=== PATIENT | female | born 1950 | race Asian ===

== ENCOUNTER → 2016-07-27 | Outpatient (CLI) | payer OTHER ==
--- NOTE | 2016-07-27 15:14 | MAMMOGRAPHY REPORT ---
UNILATERAL LEFT DIGITAL DIAGNOSTIC MAMMOGRAM TOMOSYNTHESIS WITH CAD: 07/27/2016 CLINICAL HISTORY: 66-year-old woman presents for follow-up of an enlarging left axillary lymph node. TECHNIQUE: Left breast tomosynthesis in addition to standard 2D mammography was performed. Current tez correia was also evaluated with a Computer Aided Detection (CAD) system. COMPARISON: Comparison is made to exams dated: 01/24/2016 ultrasound, 01/20/2016 mammogram, 01/16/2015 mammogram - [facility], 11/18/2011 mammogram, 11/18/2012 mammogram, and 01/11/2014 ma mmogram - [facility]. BREAST COMPOSITION: There are scattered areas of fibroglandular density in the left breast. FINDINGS: Surgical clips project over the left axillary region, seen projecting over the pectoralis muscle on the left MLO view. There is an ovoid 8.7 x 4.4 mm lymph node in the left axilla with a la rger 16 mm lymph node with prominent fatty hilum superior and posterior to the first. The smaller 8 .7 mm lymph node correlates with the possibly enlarging lymph node seen on the previous mammogram da christie 01/20/2016. Prior measurements mammographically were 11.0 x 6.1 mm and given the interval decre ase in size this is considered benign. There are mild vascular calcifications in the left breast. No new suspicious mass, architectural distortion or cluster of microcalcifications is seen. IMPRESSION: ACR BI-RADS CATEGORY 2: BENIGN The possibly enlarging lymph node in the left axilla has decreased in size compared to the January 24 mammogram, confirming benignity. There is no mammographic evidence of malignancy. Return to [facility] mammogram screening schedule is recommended. The patient has been verbally notified of the resul ts. Approximately 10% of breast cancers are not detected with mammography. A negative mammographic repor t should not delay biopsy if a clinically suggestive mass is present. Diana Wilkins M.D. ay/:07/27/2016 11:14:56 Black Belt: Sima CHARLTON)([place]), [facility] letter sent: Normal 1/2 BI-RADS Code: ACR BI-RADS Category 2: Benign
== END | disposition home or self-care (01) ==
LOC: C.MAMM 10:47
PROVIDERS: ATTEND Family Medicine
DX: R59.1 Generalized enlarged lymph nodes (principal)

== ENCOUNTER → 2016-12-18 | Outpatient (CLI) | payer OTHER | END | disposition home or self-care (01) | LOC: C.PATHSPEC 14:25 | PROVIDERS: ATTEND Dentist Endodontics | DX: K04.5 Chronic apical periodontitis (principal); K04.8 Radicular cyst ==

== ENCOUNTER → 2017-01-25 | Outpatient (CLI) | payer OTHER ==
--- NOTE | 2017-01-26 07:57 | MAMMOGRAPHY REPORT ---
BILATERAL DIGITAL SCREENING MAMMOGRAM TOMOSYNTHESIS WITH CAD: 01/25/2017 CLINICAL HISTORY: Asymptomatic. Personal history of breast cancer. TECHNIQUE: Breast tomosynthesis in addition to standard 2D mammography was performed. Current study was also evaluated with a Computer Aided Detection (CAD) system. COMPARISON: Comparison is made to exams dated: 07/27/2016 mammogram, 01/20/2016 mammogram, 01/16/2015 m ammogram, 01/11/2014 mammogram - [facility], 11/18/2012 mammogram, and 11/18/2011 mammo gram. BREAST COMPOSITION: There are scattered areas of fibroglandular density in both breasts. FINDINGS: There are stable post surgical changes in left breast. Stable size of a lymph node in the far superior left breast on the MLO view. 3 surgical clips project over the left pectoralis muscle o n the MLO view. There are mild vascular calcifications in the breasts. No new suspicious mass, arch itectural distortion or cluster of microcalcifications is seen. IMPRESSION: ACR BI-RADS CATEGORY 1: NEGATIVE There is no mammographic evidence of malignancy. A 1 year screening mammogram is recommended. The pa tient will receive written notification of the results. Approximately 10% of breast cancers are not detected with mammography. A negative mammographic report should not delay biopsy if a clinically suggestive mass is present. Diana Wilkins M.D. ay/:01/25/2017 16:59:22 Brokerage Manager: Dina Denis RT(R)(M), [facility] letter sent: Normal 1/2 BI-RADS Code: ACR BI-RADS Category 1: Negative
== END | disposition home or self-care (01) ==
LOC: C.MAMM 09:50
PROVIDERS: ATTEND Obstetrics & Gynecology
DX: Z12.31 Encounter for screening mammogram for malignant neoplasm of breast (principal); Z85.3 Personal history of malignant neoplasm of breast

== ENCOUNTER → 2018-01-26 | Outpatient (CLI) | payer OTHER ==
--- NOTE | 2018-01-27 15:08 | MAMMOGRAPHY REPORT ---
BILATERAL DIGITAL SCREENING MAMMOGRAM TOMOSYNTHESIS WITH CAD: 01/26/2018 CLINICAL HISTORY: Asymptomatic. Personal history of breast cancer. TECHNIQUE: The study was acquired using full field digital technology and interpreted from soft copy. Breast tomosynthesis in addition to standard 2D mammography was performed. Current study was also ev aluated with a Computer Aided Detection (CAD) system. COMPARISON: Comparison is made to exams dated: 01/25/2017 mammogram, 07/27/2016 mammogram, 01/20/2016 m ammogram, 01/16/2015 mammogram, 01/11/2014 mammogram - [facility], and 11/18/2012 mammo gram. BREAST COMPOSITION: There are scattered areas of fibroglandular density in both breasts. FINDINGS: There is a possible small focal area of architectural distortion in the middle one third of the right breast at approximately 6:00, for which additional spot compression tomosynthesis views an d possible ultrasound are recommended for further characterization. There are stable postsurgical changes in the left breast, with skin irregularity and a linear scar ma rker projecting over the lower inner quadrant. Surgical clips project over the left pectoralis muscl e on the MLO view. Mild vascular calcification bilaterally. No other suspicious mass, architectural distortion or cluster of microcalcifications is seen. IMPRESSION: ACR BI-RADS CATEGORY 0: INCOMPLETE EVALUATION: NEED ADDITIONAL IMAGING EVALUATION The possible small focal area of architectural distortion in the 6:00 right breast needs additional e valuation. The patient will be called to schedule an appointment. Some breast cancers are not detected with mammography. A negative mammographic report should not rg y biopsy if a clinically suggestive mass is present. Diana Wilkins M.D. ay/:01/26/2018 15:21:28 Training Executive: RT Maria Elena(Marc)(M), [facility] letter sent: Addl Imaging 0 BI-RADS Code: ACR BI-RADS Category 0: Incomplete Evaluation: Need Additional Imaging Evaluation
== END | disposition home or self-care (01) ==
LOC: C.MAMM 10:02
PROVIDERS: ATTEND Obstetrics & Gynecology
DX: Z12.31 Encounter for screening mammogram for malignant neoplasm of breast (principal); N64.89 Other specified disorders of breast